=== PATIENT | male | born 1985 | race Hispanic/Latino ===

== ENCOUNTER 2018-02-23 22:19 | Emergency (ER) | payer OTHER, MEDICAID ==
[2018-02-23] MEDS ORDERED: NA CHLORIDE 0.9% 1,000 ML ONE (23:05)
[2018-02-23 23:14] LABS: Absolute Lymphocytes (CBC) 3.1 K/uL (0.7-4.9); Absolute Monocytes 1.1 K/uL (0.1-1.3); Absolute Neutrophil 4.7 K/uL (1.8-8.0); Basophils % 0.8 % (0-1.3); Eosinophils % 1.5 % (0-4.4); Hematocrit 39.9 % (39.6-49.0); Lymphocytes % 34.2 % (15.3-44.8); MCH 30.1 pg (27.0-35.0); MCV 86.3 fL (80-100); MPV 9.7 fL (7.6-11.3); Monocytes % 11.8 % (3.3-12.3); RBC Red Blood Cell Count 4.62 M/uL (4.33-5.43)
[2018-02-23] MEDS ORDERED: ONDANSETRON 4 MG/2 ML VIAL ONE (23:14)
[2018-02-23 23:33] LABS: ALT/SGPT 52 U/L (12-78); AST/SGOT 29 U/L (15-37); Albumin 3.6 g/dL (3.4-5.0); Alkaline Phosphatase 132 U/L (45-117); Amylase Level 88 U/L (25-115); BUN Blood Urea Nitrogen 16 mg/dL (7-18); Bicarbonate 28 mmol/L (21-32); Bilirubin Direct < 0.1 mg/dL (0-0.2); Bilirubin Total 0.3 mg/dL (0.2-1.0); Glucose Level 100 mg/dL (74-106); Lipase 289 U/L (73-393); Potassium 3.3 mmol/L (3.5-5.1); Protein, Total 7.3 g/dL (6.4-8.2); Sodium Level 141 mmol/L (136-145)
[2018-02-24 00:41] LABS: Urine Blood NEGATIVE (NEG); Urine Glucose NEGATIVE (NEG); Urine Protein TRACE (NEG); Urine Specific Gravity <1.005 (1.005-1.030); Urine pH 5.5 (5.0-7.0)
[2018-02-24 00:41] LABS: Urine Bacteria <20 /HPF (NONE SEEN); Urine Culture Reflex Order NOT NEEDED; Urine RBC <5 /HPF (NONE SEEN)
[2018-02-24] MEDS ORDERED: POTASSIUM 25 MEQ EFFERV TAB ONE (00:56)
--- NOTE | 2018-02-24 03:53 | ER ---
Nurse's Notes [facility] Name: Denny Arreola Age: 32 yrs Sex: Male : 1985 Arrival Date: 02/23/2018 Time: 22:23 Bed 6 Private MD: Stanley Venegas A Diagnosis: Abdominal pain Soft tissue nodule between the stomach and spleen. Colitis Presentation: 02/23 22:41 Presenting complaint: Mother states: Patients mother reports patient has been ea complaining of stomach aches since Tuesday of last week, mother reports the symptoms improved but tonight he started having more severe cramping and diarrhea. Mother states " I felt his stomach area and freaked out because I think I felt a knot on the left side". Transition of care: patient was not received from another setting of care. Onset of symptoms was February 23, 2018. Risk Assessment: Do you want to hurt yourself or someone else? Patient reports no desire to harm self or others. Initial Sepsis Screen: Does the patient meet any 2 criteria? No. Patient's initial sepsis screen is negative. Does the patient have a suspected source of infection? No. Patient's initial sepsis screen is negative. Care prior to arrival: None. 22:41 Method Of Arrival: Ambulatory ea 22:41 Acuity: ASPEN 3 ea Triage Assessment: 22:53 General: Appears in no apparent distress. Behavior is calm, cooperative, appropriate ea for age. Pain: Complains of pain in left lower quadrant. Neuro: Level of Consciousness is awake, alert, obeys commands, Oriented to person, place, time, situation. Cardiovascular: Patient's skin is warm and dry. Respiratory: Airway is patent Respiratory effort is even, unlabored, Respiratory pattern is regular, symmetrical. GI: Abdomen is non-distended, Bowel sounds present X 4 quads. Reports diarrhea. : No signs and/or symptoms were reported regarding the genitourinary system. Derm: Skin is pink, warm \\T\\ dry. Historical: - Allergies: 22:46 Bactrim; ea 22:46 Sulfa (Sulfonamide Antibiotics); ea - Home Meds: 22:46 simvastatin 10 mg oral tab [Active]; Omeprazole Oral [Active]; Uloric 40 mg oral tab 1 ea tab once daily [Active]; Nexium 20 mg Oral cpDR 1 cap 2 times per day [Active]; - PMHx: 22:46 GERD; Gout; Hyperlipidemia; sinus headache; Estes Hirshhorn Syndrome; ea - PSHx: 22:46 Ear Tubes; lipomas removed; ea - Immunization history:: Adult Immunizations up to date. - Social history:: Smoking status: Patient/guardian denies using tobacco. - Ebola Screening: : No symptoms or risks identified at this time. Screenin:55 Abuse screen: Denies threats or abuse. Nutritional screening: No deficits noted. ea Tuberculosis screening: No symptoms or risk factors identified. Fall Risk None identified. Assessment: 23:20 Reassessment: Patient and/or family updated on plan of care and expected duration. Pain ea level reassessed. Patient is alert, oriented x 3, equal unlabored respirations, skin warm/dry/pink. 02/24 00:00 Reassessment: Patient and/or family updated on plan of care and expected duration. Pain ea level reassessed. Patient is alert, oriented x 3, equal unlabored respirations, skin warm/dry/pink. 01:15 Reassessment: Patient and/or family updated on plan of care and expected duration. Pain ea level reassessed. Patient is alert, oriented x 3, equal unlabored respirations, skin warm/dry/pink. 02:00 Reassessment: Patient and/or family updated on plan of care and expected duration. Pain ea level reassessed. Patient is alert, oriented x 3, equal unlabored respirations, skin warm/dry/pink. Pt returned from CT. 04:00 Reassessment: Patient and/or family updated on plan of care and expected duration. Pain ea level reassessed. Patient is alert, oriented x 3, equal unlabored respirations, skin warm/dry/pink. Discharge instruction given to patients mother, verbalized the understanding of instruction. Vital Signs: 02/23 22:46 BP 138 / 89; Pulse 99; Resp 18; Temp 97.8; Pulse Ox 97% ; Weight 53.07 kg; Height 4 ft. ea 10 in. (147.32 cm); Pain 11/24; 02/24 00:15 BP 127 / 84; Pulse 85; Resp 18; Pulse Ox 99% on R/A; ea 01:15 BP 133 / 94; Pulse 84; Resp 18; Pulse Ox 95% on R/A; ea 02:45 BP 108 / 78; Pulse 80; Resp 18; Pulse Ox 100% ; ea 03:45 BP 117 / 78; Pulse 80; Resp 18; Temp 97.6; Pulse Ox 98% ; Pain 0/10; ea 02/23 22:46 Body Mass Index 24.45 (53.07 kg, 147.32 cm) ea ED Course: 02/23 22:23 Patient arrived in ED. es 22:23 Stanley Venegas MD is Private Physician. es 22:36 Marcos Hinson MD is Attending Physician. pkl 22:41 Wendy Viramontes RN is Primary Nurse. ea 22:43 Triage completed. ea 22:45 Wound care: to laceration located on scalp was cleaned with with normal saline, hair tl3 around laceration cut. 22:50 Patient has correct armband on for positive identification. Bed in low position. Call ea light in reach. Side rails up X 1. Adult w/ patient. 22:50 Patient placed in an exam room, on a stretcher, on pulse oximetry. ea 22:56 Inserted saline lock: 22 gauge in right antecubital area, using aseptic technique. bp 08/ 00:23 Urine Dipstick--Ancillary (enter results) Sent. bp 02:[address] via wheelchair. kw1 02:09 CT Abd/Pelvis - W/Contrast In Process Unspecified. EDMS 02:10 CT completed. Patient tolerated procedure well. Patient moved back from CT. kw1 03:51 Noman Foley MD is Referral Physician. pkl 04:05 No provider procedures requiring assistance completed. IV discontinued, intact, ea bleeding controlled, No redness/swelling at site. Pressure dressing applied. Administered Medications: 02/23 23:00 Drug: NS 0.9% 1000 ml Route: IV; Rate: 125 ml/hr; Site: right antecubital; ea 02/24 04:04 Follow up: Response: No adverse reaction; IV Status: Completed infusion ea 00:40 Drug: K-Lyte Effervescent Tablet 25 mEq Route: PO; ea 04:04 Follow up: Response: No adverse reaction ea 04:04 Drug: Cipro 500 mg Route: PO; ea 04:04 Follow up: Response: Medication administered at discharge. ea Outcome: 03:52 Discharge ordered by . pkl 04:05 Discharged to home ambulatory, with family. ea 04:05 Condition: improved 04:05 Discharge instructions given to family, Instructed on discharge instructions, follow up and referral plans. medication usage, Demonstrated understanding of instructions, follow-up care, medications, Prescriptions given X 1. 04:10 Patient left the ED. ea Signatures: Dispatcher [employer] Marcos Bran MD MD pkl Salyer, Edna es Antunez, Elena, RN RN Carlos Yanes RN RN Cortney Bazan 1 Sherry Duran RN RN tl3
--- NOTE | 2018-02-24 03:53 | EDPHYS ---
Physician Documentation [facility] Name: Denny Arreola Age: 32 yrs Sex: Male : 1985 Arrival Date: 02/23/2018 Time: 22:23 Bed 6 Private MD: Stanley Venegas, A ED Physician Marcos Hinson HPI: 02/23 23:00 This 32 yrs old Male presents to ER via Ambulatory with complaints of pkl Abdominal Pain. 23:00 The patient presents with abdominal pain in the upper abdomen. Onset: The pkl symptoms/episode began/occurred 1 week(s) ago. The symptoms do not radiate. Associated signs and symptoms: Pertinent positives: diarrhea, vomiting. Historical: - Allergies: 22:46 Bactrim; ea 22:46 Sulfa (Sulfonamide Antibiotics); ea - Home Meds: 22:46 simvastatin 10 mg oral tab [Active]; Omeprazole Oral [Active]; Uloric 40 mg oral tab 1 ea tab once daily [Active]; Nexium 20 mg Oral cpDR 1 cap 2 times per day [Active]; - PMHx: 22:46 GERD; Gout; Hyperlipidemia; sinus headache; Estes Hirshhorn Syndrome; ea - PSHx: 22:46 Ear Tubes; lipomas removed; ea - Immunization history:: Adult Immunizations up to date. - Social history:: Smoking status: Patient/guardian denies using tobacco. - Ebola Screening: : No symptoms or risks identified at this time. ROS: 23:00 Eyes: Negative for injury, pain, redness, and discharge, ENT: Negative for injury, pkl pain, and discharge, Neck: Negative for injury, pain, and swelling, Cardiovascular: Negative for chest pain, palpitations, and edema, Respiratory: Negative for shortness of breath, cough, wheezing, and pleuritic chest pain. 23:00 Abdomen/GI: Positive for abdominal pain, vomiting, diarrhea, of the right upper quadrant and left upper quadrant. 23:00 Back: Negative for acute changes. 23:00 : Negative for urinary symptoms. 23:00 MS/extremity: Negative for acute changes. 23:00 Skin: Negative for rash. 23:00 Neuro: Negative for altered mental status. Exam: 23:00 Head/Face: Normocephalic, atraumatic. Eyes: Pupils equal round and reactive to light, pkl extra-ocular motions intact. Lids and lashes normal. Conjunctiva and sclera are non-icteric and not injected. Cornea within normal limits. Periorbital areas with no swelling, redness, or edema. ENT: Nares patent. No nasal discharge, no septal abnormalities noted. Tympanic membranes are normal and external auditory canals are clear. Oropharynx with no redness, swelling, or masses, exudates, or evidence of obstruction, uvula midline. Mucous membranes moist. Neck: Trachea midline, no thyromegaly or masses palpated, and no cervical lymphadenopathy. Supple, full range of motion without nuchal rigidity, or vertebral point tenderness. No Meningismus. Chest/axilla: Normal chest wall appearance and motion. Nontender with no deformity. No lesions are appreciated. Cardiovascular: Regular rate and rhythm with a normal S1 and S2. No gallops, murmurs, or rubs. Normal PMI, no JVD. No pulse deficits. Respiratory: Lungs have equal breath sounds bilaterally, clear to auscultation and percussion. No rales, rhonchi or wheezes noted. No increased work of breathing, no retractions or nasal flaring. 23:00 Abdomen/GI: Bowel sounds: normal, Palpation: soft, mild abdominal tenderness, in the right upper quadrant and left upper quadrant. 23:00 Back: Exam negative for acute changes. 23:00 : Exam negative for acute changes. 23:00 Musculoskeletal/extremity: Exam is negative for acute changes. 23:00 Skin: Exam negative for rash. 23:00 Neuro: Orientation: is normal, Mentation: is normal, Cranial nerves: grossly normal, Motor: is normal. Vital Signs: 22:46 BP 138 / 89; Pulse 99; Resp 18; Temp 97.8; Pulse Ox 97% ; Weight 53.07 kg; Height 4 ft. ea 10 in. (147.32 cm); Pain 5/10; 02/24 00:15 BP 127 / 84; Pulse 85; Resp 18; Pulse Ox 99% on R/A; ea 01:15 BP 133 / 94; Pulse 84; Resp 18; Pulse Ox 95% on R/A; ea 02:45 BP 108 / 78; Pulse 80; Resp 18; Pulse Ox 100% ; ea 03:45 BP 117 / 78; Pulse 80; Resp 18; Temp 97.6; Pulse Ox 98% ; Pain 0/10; ea 02/23 22:46 Body Mass Index 24.45 (53.07 kg, 147.32 cm) ea MDM: 02/23 22:36 Patient medically screened. pkl 02/24 03:50 Data reviewed: vital signs, nurses notes, lab test result(s), radiologic studies, CT pkl scan. 02/23 22:59 Order name: Amylase, Serum; Complete Time: 23:37 pkl 02/23 22:59 Order name: Basic Metabolic Panel; Complete Time: 23:37 pkl 02/23 22:59 Order name: CBC with Diff; Complete Time: 23:27 pkl 02/23 22:59 Order name: Creatinine for Radiology; Complete Time: 23:37 pkl 02/23 22:59 Order name: Hepatic Function; Complete Time: 23:37 pkl 02/23 22:59 Order name: Lipase; Complete Time: 23:37 pkl 02/23 22:59 Order name: Urine Microscopic Only; Complete Time: 00:43 pkl 02/23 22:59 Order name: IV Saline Lock; Complete Time: 22:59 pkl 02/23 22:59 Order name: CT Abd/Pelvis - W/Contrast pkl 02/23 23:00 Order name: Stool Culture pkl 02/24 00:22 Order name: Urine Dipstick--Ancillary (enter results); Complete Time: 00:43 ms 02/23 22:59 Order name: Labs collected and sent; Complete Time: 23:14 pkl 02/23 22:59 Order name: Urine Dipstick-Ancillary (obtain specimen); Complete Time: 03:19 pkl Administered Medications: 02/23 23:00 Drug: NS 0.9% 1000 ml Route: IV; Rate: 125 ml/hr; Site: right antecubital; ea 02/24 04:04 Follow up: Response: No adverse reaction; IV Status: Completed infusion ea 00:40 Drug: K-Lyte Effervescent Tablet 25 mEq Route: PO; ea 04:04 Follow up: Response: No adverse reaction ea 04:04 Drug: Cipro 500 mg Route: PO; ea 04:04 Follow up: Response: Medication administered at discharge. ea Disposition: 02/24/18 03:52 Discharged to Home. Impression: Abdominal pain Soft tissue nodule between the stomach and spleen. Colitis. - Condition is Stable. - Prescriptions for Cipro 500 mg Oral Tablet - take 1 tablet by ORAL route every 12 hours for 5 days; 10 tablet. - Medication Reconciliation Form, Thank You Letter, Antibiotic Education, Prescription Opioid Use form. - Follow up: Noman Foley MD; When: 2 - 3 days; Reason: Re-evaluation by your physician. - Problem is new. - Symptoms have improved. Signatures: Dispatcher [employer] [facility] Marcos Hinson MD MD pkl Wendy Viramontes RN RN ea Corrections: (The following items were deleted from the chart) 04:10 03:52 02/24/2018 03:52 Discharged to Home. Impression: Abdominal pain Soft tissue ea nodule between the stomach and spleen. Colitis. Condition is Stable. Forms are Medication Reconciliation Form, Thank You Letter, Antibiotic Education, Prescription Opioid Use. Follow up: Noman Foley; When: 2 - 3 days; Reason: Re-evaluation by your physician. Problem is new. Symptoms have improved. pkl
[2018-02-24] MEDS ORDERED: CIPROFLOXACIN HCL 500 MG TAB ONE ×2 (03:59→04:02)
[2018-02-24 04:25] VITALS: BP 117/78; TEMP 97.6; O2SAT 98
--- NOTE | 2018-02-24 08:57 | RAD REPORT ---
EXAM DESCRIPTION: CT - Abdomen Pelvis W Contrast - 02/24/2018 4:30 am CLINICAL HISTORY: Abdominal pain. Epigastric pain COMPARISON: None. TECHNIQUE: Computed axial tomography of the abdomen and pelvis was obtained. 100 cc Isovue-300 is ad ministered intravenously. Oral contrast was given.A preliminary report was generated by [facility] reviewed prior to this dictation All CT scans are performed using dose optimization technique as appropriate and may include automated exposure control or mA/KV adjustment according to patient size. FINDINGS: Fatty infiltration of the liver is present. The biliary tree is normal caliber. The gallbladder wall is not thickened Spleen, pancreas, adrenals and kidneys appear unremarkable. A 16 millimeters soft tissue structure lies between the stomach and spleen. The appendix is normal caliber. There is no evidence of diverticulitis Small inguinal hernias contain fat. A small umbilical hernia contains fat IMPRESSION: 16 millimeter soft tissue structure between the spleen and stomach probably representin g an accessory spleen. Less likely a mass. Followup ultrasound in 3 months is recommended to assess s tability. Fatty infiltration of liver
== END 2018-02-24 04:10 | disposition home or self-care (01) ==
LOC: ER 22:19
DX: K52.9 Noninfective gastroenteritis and colitis, unspecified (principal); M79.89 Other specified soft tissue disorders; E78.5 Hyperlipidemia, unspecified; K21.9 Gastro-esophageal reflux disease without esophagitis; Z88.1 Allergy status to other antibiotic agents; Z88.2 Allergy status to sulfonamides
CPT/HCPCS: 36415; 74177; 80048; 80076; 81003; 81015; 82150; 83690; 85025; 87045; 87046; 96360; 96361; 99285; J2405; J7030; Q9967

== ENCOUNTER 2018-07-25 09:17 | Day surgery (SDC) | payer OTHER, MEDICAID ==
[2018-07-25] MEDS ORDERED: Ringers Lactate 1,000 ML IV ONE (09:31)
[2018-07-25] MEDS ORDERED: CEFAZOLIN 1GM (PREMIX IV) 1 GM/50 ML BAG ONE (09:31)
[2018-07-25 09:33] LABS: Absolute Lymphocytes (CBC) 2.1 K/uL (0.7-4.9); Absolute Monocytes 0.7 K/uL (0.1-1.3); Absolute Neutrophil 4.8 K/uL (1.8-8.0); Basophils % 0.9 % (0-1.3); Eosinophils % 0.7 % (0-4.4); Hematocrit 45.7 % (39.6-49.0); Lymphocytes % 27.7 % (15.3-44.8); MPV 9.4 fL (7.6-11.3); Monocytes % 9.1 % (3.3-12.3); RBC Red Blood Cell Count 5.23 M/uL (4.33-5.43)
--- NOTE | 2018-07-25 09:39 | RAD REPORT ---
EXAM DESCRIPTION: Bola Lucio (2 Views)07/25/2018 9:15 am CLINICAL HISTORY: Preop COMPARISON: 2016 FINDINGS: The lungs appear clear of acute infiltrate. The heart is normal size IMPRESSION: No acute abnormalities displayed
[2018-07-25 09:42] LABS: Potassium 3.9 mmol/L (3.5-5.1)
[2018-07-25] MEDS ORDERED: PROPOFOL 200 MG/20 ML VIAL IV ONE (10:03)
[2018-07-25] MEDS ORDERED: MIDAZOLAM HCL 2 MG/2 ML INJ ONE (10:03)
[2018-07-25] MEDS ORDERED: LIDOCAINE 1% MPF 5 ML VIAL ONE (10:04)
[2018-07-25] MEDS ORDERED: FENTANYL CITR 100 MCG/2 ML ONE (10:04)
[2018-07-25] MEDS ORDERED: KETOROLAC 30 MG/ML INJ ONE (10:31)
[2018-07-25] MEDS ORDERED: ONDANSETRON 4 MG/2 ML VIAL ONE (10:31)
[2018-07-25] MEDS ORDERED: Mastisol Adhesive Liq ONE (10:55)
[2018-07-25 11:34] VITALS: O2SAT 99
[2018-07-25 12:00] VITALS: BP 139/91; TEMP 97.2
[2018-07-25] MEDS ORDERED: HYDROCODONE/APAP 7.5/325 MG TAB ONE (12:21)
--- NOTE | 2018-07-25 22:01 | OP ---
Date of Procedure: 07/25/2018 Surgeon: Parviz Torres MD Preoperative Diagnosis: Multiple masses in the left forearm, left abdomen, and bilateral thighs. Postoperative Diagnosis: Multiple masses in the left forearm, left abdomen, and bilateral thighs. Procedure: Excision of left forearm mass, 4 x 2 cm, with layered closure. Excision of left abdomen mass, 4 x 2 cm, with layered closure. Excision of left thigh mass, 4 x 2 cm, with layered closure. Excision of right thigh mass, 4 x 2 cm, with layered closure. Estimated Blood Loss: Minimal. Specimen: Multiple masses. Findings: Lipoma. Anesthesia: General. Complications: None. Disposition: The patient tolerated the procedure in stable condition and was taken to Recovery Room in good general condition. Procedure In Detail: The patient was brought to the OR and placed in supine position. General anest hesia was begun. The patient was prepped and draped in the usual sterile fashion. Marcaine 0.5% was infiltrated locally. Then a 4 cm incision was made over all 4 masses. Subcutaneous tissues divided . Approximately 4 x 2 cm lipomas were in each location. They were all excised, sent to Pathology af ter being labeled appropriately. Wound irrigated. Bleeding controlled with cautery. 3-0 chromic us ed to approximate the subcutaneous tissue as well as the skin. Sterile dressing was applied. The patient was awakened and taken to Recovery in g ood general condition. /MODL Voice ID: [id number] Report ID: [id number]
--- NOTE | 2018-07-25 22:07 | DS ---
Date of Discharge: 07/25/2018 Discharge Note: The patient is going to Day Surgery and home when stable. Disposition: Home. Condition: Stable. Discharge Instructions: Resume home medications and diet. Activity, as tolerated. No heavy lifting . Remove outer dressing in 2 days. Shower. Keep wound clean and dry. Keep Steri-Strips on at all times. Tylenol No. 3 one tablet p.o. q.4 p.r.n. pain. Followup my office in 1 week, call for appoin tment. MY/EDUARDO Voice ID: [id number] Report ID: [id number]
--- NOTE | 2018-07-25 22:58 | EKG ---
Test Date: 2018-07-25 Test Time: 08:49:35 Health Program Manager: CROW MEASUREMENT RESULTS: Intervals: Rate: 91 WY: 106 QRSD: 66 QT: 342 QTc: 420 [place]: P: -14 WY: 106 QRS: 0 T: 8 INTERPRETIVE STATEMENTS: Sinus rhythm Normal ECG Compared to ECG 12/04/1991 20:12:00 no significant change from previous ECG Electronically Signed On 07-25-18 22:58:01 [employer] MILL OPERATOR by Jr Montenegro
== END 2018-07-25 12:45 | disposition home or self-care (01) ==
LOC: OR 09:17
PROVIDERS: ATTEND Surgery
PROC: 0JB80ZZ Excision of Abdomen Subcutaneous Tissue and Fascia, Open Approach (ICD-10-PCS; 2018-07-25)
PROC: 0JBM0ZZ Excision of Left Upper Leg Subcutaneous Tissue and Fascia, Open Approach (ICD-10-PCS; 2018-07-25)
PROC: 0JBL0ZZ Excision of Right Upper Leg Subcutaneous Tissue and Fascia, Open Approach (ICD-10-PCS; 2018-07-25)
PROC: 0JBH0ZZ Excision of Left Lower Arm Subcutaneous Tissue and Fascia, Open Approach (ICD-10-PCS; principal; 2018-07-25 10:00)
DX: D17.24 Benign lipomatous neoplasm of skin and subcutaneous tissue of left leg (principal); D17.23 Benign lipomatous neoplasm of skin and subcutaneous tissue of right leg; D17.22 Benign lipomatous neoplasm of skin and subcutaneous tissue of left arm; D17.1 Benign lipomatous neoplasm of skin and subcutaneous tissue of trunk
CPT/HCPCS: 36415; 71046; 80048; 85025; 88304; 93005; J0690; J2250; J2405; J2704; J3010

== ENCOUNTER 2019-09-04 16:02 | Emergency (ER) | payer OTHER, MEDICAID ==
--- OUTSIDE RECORDS SUMMARY | 2019-09-04 16:05 | XMS REPORT ---
:1985 [facility] Address [address] [place] [address] Dr. Banks [address] [place] [id number] Care Team Providers Name Role Phone Unavailable Unavailable Unavailable Problems This patient has no known problems. Allergies, Adverse Reactions, Alerts This patient has no known allergies or adverse reactions. Medications This patient has no known medications. Encounters Start End Encounter Admission Attending Care Care Encounter Date/Time Date/Time Type Type Clinicians Facility Department ID 2019-09-04 2019-09-04 Outpatient [facility] [id number] 13:25:00 13:25:00
--- OUTSIDE RECORDS SUMMARY | 2019-09-04 16:06 | XMS REPORT | Summary of Care ---
:1985 Author Organization [facility] - [facility] Address [address] [place] [id number] Care Team Providers Name Role Phone Stanley Venegas Primary Care Provider Reason for Visit Reason Comments Follow-up Encounter Details Date Type Department Care Team Description 08/07/2019 Office Visit [facility] Internal oTmekashannenScot Gout, unspecified cause, unspecified chronicity, unspecified site (Primary Dx); Medicine M, DO Therapeutic drug monitoring Rheumatology-[address] Primary [place], [place] [address] [place] , [address] [address] [place] [address] Allergies Active Allergy Reactions Severity Noted Date Comments Sulfa (Sulfonamide Antibiotics) Hives 06/27/2009 documented as of this encounter (statuses as of 08/07/2019) Medications Medication Sig Dispensed Refills Start Date End Date Status simvastatin (ZOCOR) Take 20 mg by 0 Active 20 mg tablet mouth at bedtime. montelukast Take 10 mg by 0 Active (SINGULAIR) 10 mg mouth. tablet loratadine 10 mg Take 10 mg by 0 Active tablet mouth daily. esomeprazole Take 40 mg by 0 Active (NEXIUM) 40 mg mouth daily capsuleIndications: with taking it ever breakfast. other day Indications: taking it ever other day febuxostat (ULORIC) Take 1 tablet 30 tablet 2 07/13/2019 Active 40 mg by mouth tabletIndications: daily. 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 Foot joint pain 06/27/2009 Other abnormal blood chemistry 06/27/2009 documented as of this encounter (statuses as of 08/07/2019) Immunizations Name Administration Dates Next Due Influenza Virus Vaccine Quad IM 3+ YRS 05/25/2016 documented as of this encounter Social History Tobacco Use Types Packs/Day Years Used Date Never Smoker Smokeless Tobacco: Never Used Alcohol Use Drinks/Week oz/Week Comments Not Asked Sex Assigned at Date Recorded Not on file Job Start Date Occupation Industry Not on file Not on file Not on file Travel History Travel Start Travel End No recent travel history available. documented as of this encounter Last Filed Vital Signs Vital Sign Reading Time Taken Comments Blood Pressure 123/88 08/07/2019 9:32 AM FERN GATHERER Pulse 103 08/07/2019 9:32 AM FERN GATHERER Temperature - - Respiratory Rate 16 08/07/2019 9:32 AM FERN GATHERER Oxygen Saturation 100% 08/07/2019 9:32 AM FERN GATHERER Inhaled Oxygen Concentration - - Weight 54.8 kg (120 lb 12.8 oz) 08/07/2019 9:32 AM FERN GATHERER Height - - Body Mass Index 25.25 10/11/2017 10:22 AM CDT documented in this encounter Progress Notes Scot Moreira, DO - 08/07/2019 9:20 AM CST HPI: Mr. 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 Initially diagnosed after persistent left ankle pain and swelling that was evaluated by Ortho (rx left ankle boot after xray, dx sprain). Uloric was started and he responded well but had some persistent left ankle swelling that was steroid responsive and resolved. Uses short term LD prednisone for rare flares, but hasn't had one in many months. He is accompanied by his mother today. He tolerates Uloric 40 mg QD well without side effects. Per mom, PCP, Dr. Stanley Venegas monitors lipids. She continues to implement gout diet changes at home to lower uric acid and as of this visit. He is physically active and is able to do all ADLs to include play basketball, walk outdoors and jump on his trampoline. Some knee pain b/l. No swelling, erythema or warmth. With overuse. SOCIAL: Denny attends work activity center daily from 8:00 - 2:00 PM which provides structured activities. 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 Indications: taking it ever other day, Disp: , Rfl: loratadine 10 mg tablet, Take 10 mg by mouth daily., Disp: , Rfl: montelukast (SINGULAIR) 10 mg tablet, Take 10 mg by mouth., Disp: , Rfl: simvastatin (ZOCOR) 20 mg tablet, Take 20 mg by mouth at bedtime., Disp: , Rfl: REVIEW OF SYSTEMS Constitutional: denies chills, denies fatigue and denies fever . Eyes: denies blurry vision, denies decreased vision and denies discharge. Ears: denies discharge, denies ear pain and denies tinnitus. Nose/Sinuses: reports nasal allergies with PND, occasional sore throat and sinus congestion. Mouth/Throat: denies bleeding gums, blisters and hoarseness. Neck: denies pain, denies swollen glands Cardiovascular: denies chest pain , denies irregular pulse and denies palpitations. Respiratory: denies SOB, cough, wheeze Gastrointestinal: denies abdominal pain, anorexia, constipation and diarrhea. Genitourinary: denies burning, flank pain and hematuria. Musculoskeletal: see HPI Skin: denies bruising, dry skin and itching. PHYSICAL EXAM: Vitals: 08/07/19 0932 BP: 123/88 BP Location: Left arm Patient Position: Sitting BP CUFF SIZE: Adult Small Pulse: 103 Resp: 16 SpO2: 100% Weight: 120 lb 12.8 oz (54.8 kg) GENERAL:Pleasant alert, short stature, shortened upper and lower extremities and digits. EYES: anicteric sclera, pupils are equally round and reactive to light, extraocular movements are intact. No conjunctival erythema. HEENT: Microcephalic with mildly malformed symmetric low set ears. NECK: No palpable lymphadenopathy or thyromegaly. SKIN: No rash noted. MUSCULOSKELETAL: Small hypoplastic hands with short 5th metacarpal and reducible swan neck deformity in bilateral index fingers. FROM bilateral UE without swelling or tenderness. FROM without tenderness or swelling bilateral knees. Bilateral knees without swelling, warmth, tenderness. Bilateral ankle and feet without swelling, warmth, redness or tenderness. Somewhat flat feet. No point tenderness on palpation of right MTPs/IPs, ankles. FROM bilateral LE without tenderness. NEURO: Able to arise from seated position without assistance. Steady gait with good turnaround. LAB REVIEW: Orders Only on 06/25/2016 Component Date Value Ref Range Status URIC ACID-Q 06/25/2016 7.6 4.0 - 8.0 mg/dL Final Comment: Therapeutic target for gout patients: <6.0 mg/dL ALBUMIN-Q 06/25/2016 4.1 3.6 - 5.1 g/dL Final AST-Q 06/25/2016 34 10 - 40 U/L Final ALT-Q 06/25/2016 53* 9 - 46 U/L Final SED RATE BY MODIFIED$WESTERGREN-Q 06/25/2016 2 < OR=15 mm/h Final WHITE BLOOD CELL COUNT-Q 06/25/2016 7.9 3.8 - 10.8 Thousand/uL Final RED BLOOD CELL COUNT-Q 06/25/2016 4.93 4.20 - 5.80 Million/uL Final HEMOGLOBIN-Q 06/25/2016 14.1 13.2 - 17.1 g/dL Final HEMATOCRIT-Q 06/25/2016 42.3 38.5 - 50.0 % Final MCV-Q 06/25/2016 85.9 80.0 - 100.0 fL Final MCH-Q 06/25/2016 28.6 27.0 - 33.0 pg Final MCHC-Q 06/25/2016 33.3 32.0 - 36.0 g/dL Final RDW-Q 06/25/2016 14.4 11.0 - 15.0 % Final PLATELET COUNT-Q 06/25/2016 358 140 - 400 Thousand/uL Final MPV-Q 06/25/2016 9.2 7.5 - 11.5 fL Final ABSOLUTE NEUTROPHILS-Q 06/25/2016 4882 1500 - 7800 cells/uL Final ABSOLUTE LYMPHOCYTES-Q 06/25/2016 2038 850 - 3900 cells/uL Final ABSOLUTE MONOCYTES-Q 06/25/2016 885 200 - 950 cells/uL Final ABSOLUTE EOSINOPHILS-Q 06/25/2016 63 15 - 500 cells/uL Final ABSOLUTE BASOPHILS-Q 06/25/2016 32 0 - 200 cells/uL Final NEUTROPHILS-Q 06/25/2016 61.8 % Final LYMPHOCYTES-Q 06/25/2016 25.8 % Final MONOCYTES-Q 06/25/2016 11.2 % Final EOSINOPHILS-Q 06/25/2016 0.8 % Final BASOPHILS-Q 06/25/2016 0.4 % Final C-REACTIVE PROTEIN-Q 06/25/2016 0.13 <0.80 mg/dL Final Comment: Please be advised that patients taking Carboxypenicillins may exhibit falsely decreased C-Reactive Protein levels due to an analytical interference in this assay. 02/26/2016: Normal AST, ALT and Alkaline Phosphatase 04/15/15 CBC normal except continued elevation in PLTs 420 (was 451, 449 as of 2014). AST/ALT, ESR/CRP WNL. Creatinine stable at 1.24. Uric acid in target at 5.4. 01/08/15 WBC 11.3. Plt 433. ESR 44. 01/02/15 W 11.8. Plt 451. SGPT and CK WNL. Creat 1.24. UA 6.1 12/05/14 Plt 449. Uric Acid 6.3. Rest of CBC, AST, ALT, and creat unremarkable or WNL 11/07/14 WBC 10.9. Uric Acid 8.4. Chol 405 and TG 408. ALT, AST, ESR and CRP WNL. Supervisor Stave Finishing 1.36 10/10/14 digital media planner 1.4. UA 11.3. AST/ALT 65/111. CBC WNL. Per Dr. Moreira's review of x-ray films - c/wgout 09/19/14 AST/ALT 60/103. CK WNL. Supervisor Stave Finishing 1.4. UA 10.9 08/25/14 LFTs OK. Creatinine slightly elevated, but GFR within range for daily dosing of cochcine. 09/29/17 Done by PCP. UA 6.1. Following with PCP for the following abnormalities: Chol 277. HDL 37. Trig 456. Creat 1.49 and 2+ proteinuria (PCP referred to nephrology for this) Alk Phos 121 (115) - advised to discuss with PCP regarding any further w/u like fractions, or may just want to trend for a while. 03/15/18 UA 5.6. Plt 407K. Supervisor Stave Finishing 1.32. AST and ALT WNL IMAGING REVIEW: 01/08/15 X-ray left foot - STS great toe. No fracture or periosteal reaction. 09/13/18 UA 5.9. AST/ALT 56/95 Re check WNL. GGT, CK and hep sero normal. CBC UR Supervisor Stave Finishing 1.51 01/31/19 UA 4.7. Supervisor Stave Finishing 1.3. Plt 382K. AST and ALT WNL. US showed small kidneys. ASSESSMENT AND PLAN M10.9 Gout, unspecified cause, unspecified chronicity, unspecified site ( primary encounter diagnosis) Z51.81 Therapeutic drug monitoring Hereditary hyperuricemia (primary encounter diagnosis) Chronic Gout COMMENT/PLAN: Mr. Arreola continues to respond well to Uloric (Febuxostat) 40 mg QD. Today he has no joint pain complaints and PE shows no tenderness, erythema or swelling. No change in Uloric dose. Will follow with PCP for lipid , alk phos abnormalities. Continue to monitor symptoms - no changes tomedications at present. Continue Uloric 40 mg po QD. B/L Knee pain likely mechanical from flat feet. Advised gradual arch support. Orders Placed This Encounter Procedures ALANINE AMINO TRANSFERASE(SGPT CBC WITH DIFF URIC ACID SGOT (ASPARTATE AMINO TRANSFER) CREATININE We had a discussion about some of the recent data reports in the medial about Uloric vs allopurinol and all cause mortality, CV mortality and CV risk. The FDA issued an advisory, but it didn't say much more than what we discussed in the past. They understand and will continue rather than switch to allopurinol. RTC 6 months or sooner as needed. documented in this encounter Plan of Treatment Name Type Priority Associated Diagnoses Order Schedule ALANINE AMINO LAB Routine Gout, unspecified cause, Ordered: 08/07/2019 TRANSFERASE(SGPT unspecified chronicity, unspecified site CBC WITH DIFF LAB Routine Gout, unspecified cause, Ordered: 08/07/2019 unspecified chronicity, unspecified site URIC ACID LAB Routine Gout, unspecified cause, Ordered: 08/07/2019 unspecified chronicity, unspecified site SGOT (ASPARTATE AMINO LAB Routine Gout, unspecified cause, Ordered: 2019 TRANSFER) unspecified chronicity, unspecified site CREATININE LAB Routine Gout, unspecified cause, Ordered: 08/07/2019 unspecified chronicity, unspecified site Health Maintenance Due Date Last Done Comments VARICELLA VACCINES ( - 1986 2-dose childhood series) DTaP,Tdap,and Td Vaccines ( - 1996 Tdap) INFLUENZA VACCINE (#1) 2019 05/25/2016 PNEUMOCOCCAL 0-64 YEARS COMBINED Aged Out No longer eligible based on SERIES patient's age to complete this topic documented as of this encounter Results Not on filedocumented in this encounter Visit Diagnoses Diagnosis Gout, unspecified cause, unspecified chronicity, unspecified site - Primary Therapeutic drug monitoring Encounter for therapeutic drug monitoring documented in this encounter Insurance Payer Benefit Plan / Subscriber ID Effective Phone Address Type Group Dates CIGNA CIGNA II [id number] 2017-Pres HMO/PPO/POS ent RAINEY RAINEY xxxxxxxxx 2014-Pres [address] Medicaid HEALTHCARE - HEALTHCARE [place] [id number] MANAGED MEDICAID [place], [place]ID [place] (Work) documented as of this encounter Advance Directives Type Date Recorded 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
--- OUTSIDE RECORDS SUMMARY | 2019-09-04 16:06 | XMS REPORT | Summary of Care ---
:1985 Author Organization [facility] - Health Address [address] [place] [address] Care Team Providers Name Role Phone Stanley Venegas Primary Care Provider Encounter Details Date Type Department Care Team Description 08/23/2019 Orders Only [facility] Doctor Unassigned, No [address] [facility] [place] [address] [address] [place] [address] Allergies Active Allergy Reactions Severity Noted Date Comments Sulfa (Sulfonamide Antibiotics) Hives 06/27/2009 documented as of this encounter (statuses as of 08/23/2019) Medications Medication Sig Dispensed Refills Start Date End Date Status simvastatin (ZOCOR) 20 Take 20 mg by 0 Active mg tablet mouth at bedtime. montelukast (SINGULAIR) Take 10 mg by 0 Active 10 mg tablet mouth. loratadine 10 mg tablet Take 10 mg by 0 Active mouth daily. esomeprazole (NEXIUM) Take 40 mg by 0 Active 40 mg mouth daily with capsuleIndications: breakfast. taking it ever other Indications: day taking it ever other day febuxostat (ULORIC) 40 Take 1 tablet by 30 tablet 2 07/13/2019 Active mg tabletIndications: mouth daily. 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 Foot joint pain 06/27/2009 Other abnormal blood chemistry 06/27/2009 documented as of this encounter (statuses as of 08/23/2019) Immunizations Name Administration Dates Next Due Influenza [...] of this encounter Last Filed Vital Signs Not on filedocumented in this encounter Plan of Treatment Date Type Specialty Care Team Description 08/23/2019 Touch Up Carver Visit Phlebotomy Scot Moreira, DO [address] [place] [address] [phone] Pob, Adc Lab Main 02/05/2020 Office Visit Rheumatology Scot Moreira, DO [address] [place] [address] [phone] Health Maintenance Due Date Last Done Comments VARICELLA VACCINES (1 of 2 - 1986 2-dose childhood series) DTaP,Tdap,and Td Vaccines (1 - 1996 Tdap) INFLUENZA VACCINE (#1) 2019 05/25/2016 PNEUMOCOCCAL 0-64 YEARS COMBINED Aged Out No longer eligible based on SERIES patient's age to complete this topic documented as of this encounter Procedures Procedure Name Priority Date/Time Associated Diagnosis Comments ASSIGNMENT OF BENEFITS Routine 08/23/2019 8:27 AM MANAGER RISK documented in this encounter Results Not on filedocumented in this encounter Insurance Payer Benefit Plan / Subscriber ID Effective Phone Address Type Group Dates CIGNA CIGNA II [id number] 2017-Pres HMO/PPO/POS ent RAINEY RAINEY xxxxxxxxx 2014-Pres P O BOX Medicaid HEALTHCARE - [place]CARE [place] [id number] MANAGED MEDICAID [place], [place] documented as of this encounter Advance Directives Type Date Recorded Patient Telephone Surveyor Explanation Advance Directives and Living Will Advance Directives and Living Will Power of Thread Singer
--- OUTSIDE RECORDS SUMMARY | 2019-09-04 16:06 | XMS REPORT | Summary of Care ---
:1985 Author Organization [facility] [[email or web address]] - [facility] Address [address] [place] [address] Care Team Providers Name Role Phone Stanley Venegas Primary Care Provider Reason for Visit Reason Comments LAB WORK Lab Results Encounter Details Date Type Department Care Team Description 08/08/2019 Telephone [facility] Internal Scot Moreira, LAB WORK; Lab Results Medicine DO Rheumatology[address] Primary Care [address] , [place], [place] [id number] [place] [address] [phone] [address] [phone] Allergies Active Allergy Reactions Severity Noted Date Comments Sulfa (Sulfonamide Antibiotics) Hives 06/27/2009 documented as of this encounter (statuses as of 08/08/2019) Medications Medication Sig Dispensed Refills Start Date [...] as of this encounter (statuses as of 08/08/2019) Active Problems Problem Noted Date Hereditary hyperuricemia 05/28/2014 Abnormal LFTs 04/16/2014 Gout 07/09/2009 Overview: ICD10 Diagnosis 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 Foot joint pain 06/27/2009 Other abnormal blood chemistry 06/27/2009 documented as of this encounter (statuses as of 08/08/2019) Immunizations Name Administration Dates Next Due Influenza [...] Treatment Date Type Specialty Care Team Description 02/05/2020 Office Visit Rheumatology Scot Moreira, DO [address] [place] [address] [phone] Name Type Priority Associated Diagnoses Order Schedule SGOT (ASPARTATE AMINO LAB Routine Gout, unspecified cause, Expected: 2019, TRANSFER) unspecified chronicity, Expires: 08/08/2020 unspecified site Therapeutic drug monitoring ALANINE AMINO LAB Routine Gout, unspecified cause, Expected: 08/08/2019, TRANSFERASE(SGPT unspecified chronicity, Expires: 08/08/2020 unspecified site Therapeutic drug monitoring CREATINE KINASE LAB Routine Gout, unspecified cause, Expected: 08/08/2019, unspecified chronicity, Expires: 08/08/2020 unspecified site Therapeutic drug monitoring Health Maintenance Due Date Last Done Comments [...] Address Type Group Dates CIGNA CIGNA II [id number] 2017-Pres HMO/PPO/POS ent RAINEY RAINEY xxxxxxxxx 2014-Pres P [address] BOX Medicaid HEALTHCARE - [place]CARE [place] [id number] MANAGED MEDICAID [place], [place] documented as of this encounter Advance Directives Type Date Recorded 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
--- OUTSIDE RECORDS SUMMARY | 2019-09-04 16:06 | XMS REPORT | Summary of Care ---
:1985 Author Organization [facility] - [facility] Address [address] [place] [address] Care Team Providers Name Role Phone Stanley Venegas Primary Care Provider Reason for Visit Reason Comments Follow-up Encounter Details Date Type Department Care Team Description 08/07/2019 Office Visit [facility] Internal TomekashannenScot Gout, unspecified cause, unspecified chronicity, unspecified site (Primary Dx); Medicine M, DO Therapeutic drug monitoring Rheumatology-[address] Primary Care [place], [place] [address] [place] , [address] [address] [place] [address] Allergies Active Allergy Reactions Severity [...] 04/16/2014 Gout 07/09/2009 Overview: ICD10 Diagnosis 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 ALT, AST, ESR and CRP WNL. Child Support Specialist 1.36 10/10/14 trim setter helper 1.4. UA 11.3. AST/ALT 65/111. CBC WNL. Per Dr. Moreira's review of x-ray films - c/wgout 09/19/14 AST/ALT 60/103. CK WNL. Child Support Specialist 1.4. UA 10.9 08/25/14 LFTs OK. Creatinine [...] a while. 03/15/18 UA 5.6. Plt 407K. Child Support Specialist 1.32. AST and ALT WNL IMAGING REVIEW: 01/08/15 X-ray left foot - STS great toe. No fracture or periosteal reaction. 09/13/18 UA 5.9. AST/ALT 56/95 Re check WNL. GGT, CK and hep sero normal. CBC UR Child Support Specialist 1.51 01/31/19 UA 4.7. Child Support Specialist 1.3. Plt 382K. AST and ALT WNL. 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
--- OUTSIDE RECORDS SUMMARY | 2019-09-04 16:06 | XMS REPORT | Summary of Care ---
:1985 Author Organization [facility] - Health Address [address] [place] [address] Care Team Providers Name Role Phone Stanley Venegas Primary Care Provider Reason for Visit Reason Comments GOUT Follow up Encounter Details Date Type Department Care Team Description 01/20/2016 Office Visit [facility] Internal Chanell Nielsen Hereditary hyperuricemia (Primary Dx); Medicine A, PA-C Acute idiopathic gout of left foot; Rheumatology-[address] Therapeutic drug monitoring; n South Foot joint pain, left Primary Care [place], [place] [address] , [address] [facility] [address] [place], [place] [phone] [address] (Fax) [phone] Allergies Active Allergy Reactions Severity Noted Date Comments Sulfa (Sulfonamide Antibiotics) Hives 06/27/2009 documented as of this encounter (statuses as of 08/23/2019) Medications Medication Sig Dispensed Refills Start Date End Date Status simvastatin (ZOCOR) Take 20 mg 0 Active 20 mg tablet by mouth at bedtime. montelukast Take 10 mg 0 Active (SINGULAIR) 10 mg by mouth. tablet LORATADINE Take by 0 Discontinued (CLARITIN ORAL) mouth. 6 (Alternate therapy) chlorhexidine 1 12/28/2014 Discontinued (PERIDEX) 0.12 % 6 (Therapy mouthwash completed) PREVIDENT 5000 2 11/11/2014 Discontinued BOOSTER PLUS 1.1 % 8 Pste predniSONE Take 4 120 Tab 1 02/21/2015 Discontinued (ORASONE) 1 mg tablets by 6 (Therapy tablet mouth each completed) morning with a meal. lansoprazole Take 30 mg 0 Discontinued (PREVACID) 30 mg by mouth 8 capsule daily. 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 Foot joint pain 06/27/2009 Other abnormal blood chemistry 06/27/2009 documented as of this encounter (statuses as of 08/23/2019) Social History Tobacco Use Types Packs/Day Years [...] Sign Reading Time Taken Comments Blood Pressure 120/88 01/20/2016 4:02 PM CDT Pulse 89 01/20/2016 4:02 PM CDT Temperature 36.3 C (97.3 F) 01/20/2016 4:02 PM CDT Respiratory Rate 20 01/20/2016 4:02 PM CDT Oxygen Saturation - - Inhaled Oxygen Concentration - - Weight 52.4 kg (115 lb 9.6 oz) 01/20/2016 4:02 PM CDT Height 147.3 cm (4' 10") 01/20/2016 4:02 PM CDT Body Mass Index 24.16 01/20/2016 4:02 PM CDT documented in this encounter Progress Notes Chanell Nielsen PA-C - 01/20/2016 4:12 PM CDT 01/20/2016 HPI: Mr. 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 Prior had persistent left ankle pain and swelling that was initially evaluated by Ortho (rx left ankle boot after xray, dx sprain). Since last visit, August 2015 he has been doing well w/o gout flares and has been able to wean prednisone. Per mom, Denny has been complaining of left toe pain recently but there has been no swelling/redness or trauma. Other joints are doing well and he denies joint pain, stiffness, and swelling. Hetolerates Uloric 40 mg QD well without side effects. Per mom, PCP, Dr. Stanley Venegas monitors lipids and will check them at his next visit. She continues to implement diet changes at home and as ofthis visit, Denny has lost 2 pounds. He is physically active and is able to do all ADLs to include play basketball, walk outdoors and jump on his new trampoline. They will be taking a cruise from [place] for summer vacation. SOCIAL: Denny attends work activity center daily from 8:00 - 2:00 PM which provides structured activities. He has an 8 y/o brother at home. 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,moderate mental retardation Otitis media UTI (lower urinary tract infection) and retention-was on medication for about7-8 months Past Surgical History Procedure Laterality Date Myringotomy Current outpatient prescriptions: febuxostat (ULORIC) 40 mg tablet, Take one tablet daily, Disp: 30 tablet, Rfl: 4 lansoprazole (PREVACID) 30 mg capsule, Take 30 mg by mouth daily., Disp: , Rfl: montelukast (SINGULAIR) 10 mg tablet, Take 10 mg by mouth., Disp: , Rfl: PREVIDENT 5000 BOOSTER PLUS 1.1 % Pste, , Disp: , Rfl: 2 simvastatin (ZOCOR) 20 mg tablet, Take 20 mg by mouth at bedtime., Disp: , Rfl: LORATADINE (CLARITIN ORAL), Take by mouth., Disp: , Rfl: REVIEW OF SYSTEMS Constitutional: [...] bruising, dry skin and itching. PHYSICAL EXAM: Filed Vitals: 01/20/16 1602 BP: 120/88 Pulse: 89 Temp: 36.3 C (97.3 F) TempSrc: Axillary Resp: 20 Height: 4' 10" (1.473 m) Weight: 115 lb 9.6 oz (52.436 kg) GENERAL:Pleasant alert, short stature, shortened upper [...] knees. Bilateral knees without swelling, warmth, tenderness. Right ankleand foot without swelling, warmth, redness or tenderness. Left foot/ankle with tenderness on MTP squeeze and over medial malleolus; no redness and no warmth. Some mild bunion formation left great toe with mild tenderness to deep palpation. FROM bilateral LE without tenderness. Thoracolumbar flexionwith good ROM - able to touch shoes with hands bilaterally. NEURO: Able to arise from seated position without assistance. Steady gait. LAB REVIEW: 04/15/15 CBC normal except continued elevation in PLTs 420 (was 451, 449 as of 2014). AST/ALT, ESR/CRP WNL. Creatinine stable at 1.24. Uric acid in target at 5.4. 01/08/15 WBC 11.3. Plt 433. ESR 44. 6/ W 11.8. Plt 451. SGPT and CK WNL. Creat 1.24. UA 6.1 12/05/14 Plt 449. Uric Acid 6.3. Rest of CBC, AST, ALT, and creat unremarkable or WNL 11/07/14 WBC 10.9. Uric Acid 8.4. Chol 405 and TG 408. ALT, AST, ESR and CRP WNL. Pharmacovigilance Scientist 1.36 10/10/14 cotton ball machine tender 1.4. UA 11.3. AST/ALT 65/111. CBC WNL. Per Dr. Moreira's review of x-ray films - c/wgout 09/19/14 AST/ALT 60/103. CK WNL. Pharmacovigilance Scientist 1.4. UA 10.9 08/25/14 LFTs OK. Creatinine slightly elevated, but GFR within range for daily dosing of cochcine. IMAGING REVIEW: 01/08/15 X-ray left foot - STS great toe. No fracture or periosteal reaction. 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 Arreola continues to respond well to Uloric (Febuxostat) 40 mg QD without recent gout flare. Today he has some left great toe pain. PE shows no erythema or swelling. Will check uric acids and labs for medication toxicity (please send lab results to mother to hand carry to PCP's office, [facility]). Continue to monitor symptoms - no changes to medications at present. Continue Uloric 40 mg po QD. eRX sent to [facility] pharmacy. Z51.81 Therapeutic drug monitoring COMMENT/PLAN: Update labs today to check for toxicity to Uloric. Tolerating medication well. History of elevated LFTs, PLTs in past. Orders Placed This Encounter Procedures URIC ACID CBC WITH DIFF COMP. METABOLIC PANEL (67336) RTC 4 months or sooner as needed. NORTH Robin PA-C [facility] documented in this encounter Plan of Treatment Date Type Specialty Care Team Description 02/05/2020 Office Visit Rheumatology Scot Moreira, DO [address] [place] [address] [phone] Name Type Priority Associated Diagnoses Order Schedule URIC ACID LAB Routine Acute idiopathic gout of left foot Ordered: 2015 CBC WITH DIFF LAB Routine Therapeutic drug monitoring Ordered: 01/20/2016 Health Maintenance Due Date Last Done Comments VARICELLA VACCINES (1 of 2 - 1986 2-dose childhood series) DTaP,Tdap,and Td Vaccines (1 - 1996 Tdap) INFLUENZA VACCINE (#1) 2019 05/25/2016 PNEUMOCOCCAL 0-64 YEARS COMBINED Aged Out No longer eligible based on SERIES patient's age to complete this topic documented as of this encounter Results Not on filedocumented in this encounter Visit Diagnoses Diagnosis Hereditary hyperuricemia - Primary Other disorders of purine and pyrimidine metabolism Acute idiopathic gout of left foot Therapeutic drug monitoring Encounter for therapeutic drug monitoring Foot joint pain, left documented in this encounter Insurance Payer Benefit Plan / Subscriber ID Effective Phone Address Type Group Dates CIGNA CIGNA I [id number] 2007-07/18 HMO/PPO/POS /2018 BRIGID RAINEY xxxxxxxxx 2014-Pres P [address]OX Medicaid HEALTHCARE - HEALTHCARE ent [id number] MANAGED MEDICAID [place], [place] (Work) documented as of this encounter Advance Directives Type Date Recorded Patient 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
--- OUTSIDE RECORDS SUMMARY | 2019-09-04 16:06 | XMS REPORT | Summary of Care ---
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 [facility] Scot Moreira, DO [address] [place], [place] [address] Gout, unspecified [facility] cause, unspecified LAB chronicity, Primary Care unspecified site [facility] [address] , Entr A; [address] [place] [address] Allergies Active Allergy Reactions Severity Noted Date [...] 04/16/2014 Gout 07/09/2009 Overview: ICD10 Diagnosis 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 Utility Foot joint pain 06/27/2009 Other abnormal [...] Team Description 02/05/2020 Office Visit Rheumatology Scot Moreira DO [address] [place] [address] [phone] Health Maintenance Due Date Last Done Comments [...] Gout, unspecified cause, unspecified chronicity, unspecified site documented in this encounter Insurance Payer Benefit Plan / Subscriber ID Effective Phone Address Type Group Dates CIGNA CIGNA II [id number] 2017-Pres HMO/PPO/POS ent RAINEY RAINEY xxxxxxxxx 2014-Pres P O BOX Medicaid HEALTHCARE - HEALTHCARE ent [id number] MANAGED MEDICAID [place], [place] (Work) documented as of this encounter Advance Directives Type Date Recorded Patient Director Of Respiratory Therapy Explanation Advance Directives and Living Will Advance Directives and Living Will Power of Dogger
--- OUTSIDE RECORDS SUMMARY | 2019-09-04 16:06 | XMS REPORT | Summary of Care ---
:1985 Author Organization [facility] Address [address] [place] [address] Care Team Providers Name Role Phone Stanley Venegas Primary Care Provider Reason for Visit Reason Comments LAB WORK Auth/Cert Status Reason Specialty Diagnoses / Procedures Referred By Contact Referred To Contact Phlebotomy Diagnoses Gout, unspecified cause, unspecified chronicity, unspecified site Adc Pob Lab Draw Procedures CREATINE KINASE Professional Office Building [address] [place] [address] , [address] [place] [address] Encounter Details Date Type Department Care Team Description 08/23/2019 Manager Nursing Home Visit [facility] Scot Moreira, DO [address] [place] [address] [phone] Gout, unspecified cause, unspecified chronicity, unspecified site; Professional Office Pob, Adc Lab Main Therapeutic drug monitoring Building Phlebotomy Lab Professional Office Building [address] [place] [address] , [address] [place] [address] Allergies Active Allergy Reactions Severity Noted Date [...] 04/16/2014 Gout 07/09/2009 Overview: ICD10 Diagnosis 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 Foot joint pain 06/27/2009 Other abnormal [...] 02/05/2020 Office Visit Rheumatology Scot Moreira, DO [facility] [place] [address] [phone] Name Type Priority Associated Diagnoses Date/Time CREATINE KINASE LAB Routine Gout, unspecified cause, 08/23/2019 8:53 AM WINDOW DRESSER unspecified chronicity, unspecified site Therapeutic drug monitoring ALANINE AMINO LAB Add-on Gout, unspecified cause, 08/23/2019 8:53 AM WINDOW DRESSER TRANSFERASE(SGPT unspecified chronicity, unspecified site Therapeutic drug monitoring SGOT (ASPARTATE AMINO LAB Add-on Gout, unspecified cause, 08/23/2019 8:53 AM WINDOW DRESSER TRANSFER) unspecified chronicity, unspecified site Therapeutic drug monitoring Name Type Priority Associated Diagnoses Order Schedule ALANINE AMINO LAB Add-on Gout, unspecified cause, Expected: 08/23/2019, TRANSFERASE(SGPT unspecified chronicity, Expires: 08/23/2020 unspecified site Therapeutic drug monitoring SGOT (ASPARTATE AMINO LAB Add-on Gout, unspecified cause, Expected: 2019, TRANSFER) unspecified chronicity, Expires: 08/23/2020 unspecified site Therapeutic drug monitoring Health Maintenance Due Date Last Done Comments VARICELLA VACCINES ( of - 1986 2-dose childhood series) DTaP,Tdap,and Td Vaccines (1 - 1996 Tdap) INFLUENZA VACCINE (#1) 2019 05/25/2016 PNEUMOCOCCAL 0-64 YEARS COMBINED Aged Out No longer eligible based on SERIES patient's age to complete this topic documented as of this encounter Results Not on filedocumented in this encounter Visit Diagnoses Diagnosis Gout, unspecified cause, unspecified chronicity, unspecified site Therapeutic drug monitoring Encounter for therapeutic drug monitoring documented in this encounter Insurance Payer Benefit Plan / Subscriber ID Effective Phone Address Type Group Dates CIGNA CIGNA II [id number] 2017-Pres HMO/PPO/POS ent BRIGID RAINEY xxxxxxxxx 2014-Pres P O BOX Medicaid HEALTHCARE - HEALTHCARE [place] [id number] MANAGED MEDICAID [place] (Work) documented as of this encounter Advance Directives Type Date Recorded 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
--- OUTSIDE RECORDS SUMMARY | 2019-09-04 16:06 | XMS REPORT | Summary of Care ---
:1985 Author Organization [facility] Address [address] [place] [address] Care Team Providers Name Role Phone Stanley Venegas Primary Care Provider Reason for Visit Reason Comments Talk To Nurse Labs Encounter Details Date Type Department Care Team Description 08/23/2019 Telephone [facility] Internal Scot Moreira, Talk To Nurse (Labs ) Medicine DO Rheumat[address] Primary Care [address] , [place], [place] [id number] [place] [address] [phone] [phone] Allergies Active Allergy Reactions Severity Noted Date Comments Sulfa (Sulfonamide Antibiotics) Hives 06/27/2009 documented as of this encounter (statuses as of 08/24/2019) Medications Medication Sig Dispensed Refills Start Date [...] as of this encounter (statuses as of 08/24/2019) Active Problems Problem Noted Date Hereditary hyperuricemia 05/28/2014 Abnormal LFTs 04/16/2014 Gout 07/09/2009 Overview: ICD10 Diagnosis 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 Foot joint pain 06/27/2009 Other abnormal blood chemistry 06/27/2009 documented as of this encounter (statuses as of 08/24/2019) Immunizations Name Administration Dates Next Due Influenza [...] 02/05/2020 Office Visit Rheumatology Scot Moreira, DO [address] [place] [address] [phone] Health Maintenance Due Date Last Done Comments [...] Address Type Group Dates CIGNA CIGNA II [id number] 2017-Pres HMO/PPO/POS ent BRIGID RAINEY xxxxxxxxx 2014-Pres P O BOX Medicaid HEALTHCARE - HEALTHCARE [place] [id number] MANAGED MEDICAID [place] documented as of this encounter Advance Directives Type Date Recorded Patient Permanent Waver Explanation Advance Directives and Living Will Advance Directives and Living Will Power of Clinical Secretary
--- OUTSIDE RECORDS SUMMARY | 2019-09-04 16:06 | XMS REPORT | Summary of Care ---
:[address] [facility] Address [address] [place] [address] Care Team Providers Name Role Phone Stanley Venegas Primary Care Provider Reason for Visit Reason Comments Rx Concern/Question Encounter Details Date Type Department Care Team Description 08/24/2019 Telephone [facility] Internal Scot Moreira, Rx Concern/ Question Medicine DO Rheumat[address] Primary Care [address] , [place], [place] [address] [address] [place] [phone] Allergies Active Allergy Reactions Severity Noted Date [...] 04/16/2014 Gout 07/09/2009 Overview: ICD10 Diagnosis 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 Utility Foot joint pain 06/27/2009 Other abnormal [...] 02/05/2020 Office Visit Rheumatology Scot Moreira, DO [address] [place] [address] [phone] Health Maintenance Due Date Last Done Comments [...] Address Type Group Dates CIGNA CIGNA II [id number] 2017-Pres HMO/PPO/POS ent BRIGID RAINEY xxxxxxxxx 2014-Pres P O BOX Medicaid HEALTHCARE - HEALTHCARE [place] [id number] MANAGED MEDICAID [place] documented as of this encounter Advance Directives Type Date Recorded 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
--- OUTSIDE RECORDS SUMMARY | 2019-09-04 16:07 | XMS REPORT | Summary of Care ---
:1985 Author Organization [facility] Address [address] [place] [address] Care Team Providers Name Role Phone Stanley Venegas Primary Care Provider Reason for Referral (Routine) Status Reason Specialty Diagnoses / Referred By Referred To Procedures Contact Contact New Request Gastroenterology Diagnoses Elevated LFTs Scot Moreira Procedures CONSULT/REFERRAL HEPATOLOGY Libertad DO [address] [place] [address] Reason for Visit Reason Comments Rx Concern/Question Encounter Details Date Type Department Care Team Description 08/24/2019 Telephone [facility] Internal Scot Moreira Rx Concern/ Question Medicine DO Rheumat[address] Primary Care [address] , [place], [place] [address] [address] [place] [address] Allergies Active Allergy Reactions Severity Noted Date [...] 04/16/2014 Gout 07/09/2009 Overview: ICD10 Diagnosis 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 Utility Foot joint pain 06/27/2009 Other abnormal [...] 02/05/2020 Office Visit Rheumatology Scot Moreira, DO [address] [place] [address] [phone] Health Maintenance Due Date Last Done Comments VARICELLA VACCINES (1 of 2 - 1986 2-dose childhood series) DTaP,Tdap,and Td Vaccines (1 - 1996 Tdap) INFLUENZA VACCINE (#1) 2019 05/25/2016 PNEUMOCOCCAL 0-64 YEARS COMBINED Aged Out No longer eligible based on SERIES patient's age to complete this topic documented as of this encounter Results Not on filedocumented in this encounter Visit Diagnoses Diagnosis Elevated LFTs - Primary Other abnormal blood chemistry documented in this encounter Insurance Payer Benefit Plan / Subscriber ID Effective Phone Address Type Group Dates YAHAIRA SYED II [id number] 2017-Pres HMO/PPO/POS ent BRIGID RAINEY xxxxxxxxx 2014-Pres P O BOX Medicaid HEALTHCARE - [place]ALTHCARE [place] [id number] MANAGED MEDICAID [place] documented as of this encounter Advance Directives Type Date Recorded 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
--- NOTE | 2019-09-04 17:43 | ER ---
Nurse's Notes [facility] Name: Denny Arreola Age: 33 yrs Sex: Male : 1985 Arrival Date: 09/04/2019 Time: 16:04 Bed 23 Private MD: Benja Ocasio W Diagnosis: Acute upper respiratory infection, unspecified Presentation: 09/04 16:14 Presenting complaint: Mother states: Throat pain since today. Cough since last night. ca1 Denies fever. Transition of care: patient was not received from another setting of care. Onset of symptoms was September 04, 2019. Risk Assessment: Do you want to hurt yourself or someone else? Patient reports no desire to harm self or others. Initial Sepsis Screen: Does the patient meet any 2 criteria? No. Patient's initial sepsis screen is negative. Does the patient have a suspected source of infection? No. Patient's initial sepsis screen is negative. Care prior to arrival: None. 16:14 Method Of Arrival: Ambulatory ca1 16:14 Acuity: ASPEN 4 ca1 Triage Assessment: 16:30 General: Appears in no apparent distress. Behavior is calm, cooperative, appropriate vc for age. Historical: - Allergies: 16:17 Bactrim; ca1 16:17 Sulfa (Sulfonamide Antibiotics); ca1 - PMHx: 16:17 GERD; Gout; Hyperlipidemia; sinus headache; Estes Hirshhorn Syndrome; ca1 - PSHx: 16:17 Ear Tubes; lipomas removed; ca1 - Immunization history:: Adult Immunizations up to date, Flu vaccine is up to date. - Coronavirus screen:: The patient has NOT traveled to [place] in the past 14 days. The patient has NOT had contact with known/suspected case of Coronavirus?. - Social history:: Smoking status: Patient denies any tobacco usage or history of. - Ebola Screening: : Patient negative for fever greater than or equal to 101.5 degrees Fahrenheit, and additional compatible Ebola Virus Disease symptoms Patient denies exposure to infectious person Patient denies travel to an Ebola-affected area in the 21 days before illness onset No symptoms or risks identified at this time. Screenin:15 Abuse screen: Denies threats or abuse. Nutritional screening: No deficits noted. vc Tuberculosis screening: No symptoms or risk factors identified. Fall Risk None identified. Assessment: 16:30 General: Appears in no apparent distress. ill, Behavior is calm, cooperative, vc appropriate for age. Pain: Complains of pain in throat. Neuro: Level of Consciousness is awake, alert, obeys commands, Oriented to person, place, time. Cardiovascular: Patient's skin is warm and dry. Respiratory: Airway is patent Respiratory effort is even, unlabored, Breath sounds are clear. EENT: Throat is reddened. Derm: Skin temperature is warm. Musculoskeletal: Circulation, motion, and sensation intact. Range of motion: intact in all extremities. 17:30 Reassessment: Patient and/or family updated on plan of care and expected duration. Pain vc level reassessed. Patient is alert, oriented x 3, equal unlabored respirations, skin warm/dry/pink. 18:00 Reassessment: Patient and/or family updated on plan of care and expected duration. Pain vc level reassessed. Patient is alert, oriented x 3, equal unlabored respirations, skin warm/dry/pink. Neuro: Level of Consciousness is awake, alert, obeys commands. Respiratory: Respiratory effort is even, unlabored, Respiratory pattern is regular, symmetrical. Vital Signs: 16:17 BP 129 / 94; Pulse 94; Resp 18 S; Temp 97.7(A); Pulse Ox 99% on R/A; Weight 55.34 kg; ca1 Height 4 ft. 10 in. (147.32 cm) (R); 17:00 BP 119 / 103; Pulse 109; Resp 16; Pulse Ox 99% on R/A; vc 17:45 BP 103 / 72; Pulse 107; Resp 18; Pulse Ox 96% on R/A; vc 16:17 Body Mass Index 25.50 (55.34 kg, 147.32 cm) ca1 ED Course: 16:04 Patient arrived in ED. rg4 16:04 Benja Ocasio MD is Private Physician. rg4 16:04 Donya Mares FNP-C is [facility]. snw 16:04 Berry Gonzalez MD is Attending Physician. snw 16:16 Triage completed. ca1 16:18 Arm band placed on right wrist. ca1 16:29 Flu and/or RSV swab sent to lab. Strep swab sent to lab. tm3 16:30 Patient has correct armband on for positive identification. Bed in low position. Call vc light in reach. Side rails up X 1. 16:50 Melody Eddy, RN is Primary Nurse. vc 18:15 No provider procedures requiring assistance completed. Patient did not have IV access vc during this emergency room visit. Administered Medications: No medications were administered Outcome: 17:37 Discharge ordered by . snw 18:15 Discharged to home ambulatory, with family. vc 18:15 Condition: good 18:15 Discharge instructions given to patient, family, Instructed on discharge instructions, follow up and referral plans. medication usage, Demonstrated understanding of instructions, Prescriptions given X 1. 18:19 Patient left the ED. vc Signatures: Cholo Peña tm3 Donya Mares, WELL SERVICES OPERATOR-C WELL SERVICES OPERATOR-Csnw Ariana Hayes rg4 Alix Ulloa RN RN ca1 Melody Eddy, JULIA RN vc
--- NOTE | 2019-09-04 17:43 | EDPHYS ---
Physician Documentation [facility] Name: Denny Arreola Age: 33 yrs Sex: Male : 1985 Arrival Date: 09/04/2019 Time: 16:04 Bed 23 Private MD: Benja Ocasio W ED Physician Berry Gonzalez HPI: 09/04 16:31 This 33 yrs old Male presents to ER via Ambulatory with complaints of Sore snw Throat. 16:31 The patient presents with sore throat. The patient describes throat pain as raw, snw scratchy. Onset: The symptoms/episode began/occurred suddenly, last night. Severity of symptoms: At their worst the symptoms were mild. Modifying factors: the symptoms are aggravated by swallowing, cough. Associated signs and symptoms: Pertinent positives: cough. The patient has not experienced similar symptoms in the past. It is unknown whether or not the patient has recently seen a physician. Historical: - Allergies: 16:17 Bactrim; ca1 16:17 Sulfa (Sulfonamide Antibiotics); ca1 - PMHx: 16:17 GERD; Gout; Hyperlipidemia; sinus headache; Estes Hirshhorn Syndrome; ca1 - PSHx: 16:17 Ear Tubes; lipomas removed; ca1 - Immunization history:: Adult Immunizations up to date, Flu vaccine is up to date. - Coronavirus screen:: The patient has NOT traveled to [place] in the past 14 days. The patient has NOT had contact with known/suspected case of Coronavirus?. - Social history:: Smoking status: Patient denies any tobacco usage or history of. - Ebola Screening: : Patient negative for fever greater than or equal to 101.5 degrees Fahrenheit, and additional compatible Ebola Virus Disease symptoms Patient denies exposure to infectious person Patient denies travel to an Ebola-affected area in the 21 days before illness onset No symptoms or risks identified at this time. ROS: 16:30 Constitutional: Negative for fever, chills, and weight loss, Eyes: Negative for injury, snw pain, redness, and discharge, Neck: Negative for injury, pain, and swelling, Cardiovascular: Negative for chest pain, palpitations, and edema, Respiratory: Negative for shortness of breath, wheezing, and pleuritic chest pain, + cough Abdomen/GI: Negative for abdominal pain, nausea, vomiting, diarrhea, and constipation, Back: Negative for injury and pain, : Negative for injury, bleeding, discharge, and swelling, MS/Extremity: Negative for injury and deformity, Skin: Negative for injury, rash, and discoloration, Neuro: Negative for headache, weakness, numbness, tingling, and seizure, Psych: Negative for depression, anxiety, suicide ideation, homicidal ideation, and hallucinations. 16:30 ENT: Positive for sore throat. Exam: 16:25 Constitutional: This is a well developed, well nourished patient who is awake, alert, snw and in no acute distress. Head/Face: Normocephalic, atraumatic. Eyes: Pupils equal round and reactive to light, extra-ocular motions intact. Lids and lashes normal. Conjunctiva and sclera are non-icteric and not injected. Cornea within normal limits. Periorbital areas with no swelling, redness, or edema. Neck: Trachea midline, no thyromegaly or masses palpated, and no cervical lymphadenopathy. Supple, full range of motion without nuchal rigidity, or vertebral point tenderness. No Meningismus. Chest/axilla: Normal chest wall appearance and motion. Nontender with no deformity. No lesions are appreciated. Cardiovascular: Regular rate and rhythm with a normal S1 and S2. No gallops, murmurs, or rubs. Normal PMI, no JVD. No pulse deficits. Respiratory: Lungs have equal breath sounds bilaterally, clear to auscultation and percussion. No rales, rhonchi or wheezes noted. No increased work of breathing, no retractions or nasal flaring. Abdomen/GI: Soft, non-tender, with normal bowel sounds. No distension or tympany. No guarding or rebound. No evidence of tenderness throughout. Back: No spinal tenderness. No costovertebral tenderness. Full range of motion. Skin: Warm, dry with normal turgor. Normal color with no rashes, no lesions, and no evidence of cellulitis. MS/ Extremity: Pulses equal, no cyanosis. Neurovascular intact. Full, normal range of motion. Neuro: Awake and alert, GCS 15, oriented to person, place, time, and situation. Cranial nerves II-XII grossly intact. Motor strength 5/5 in all extremities. Sensory grossly intact. Cerebellar exam normal. Normal gait. Psych: Awake, alert, with orientation to person, place and time. Behavior, mood, and affect are within normal limits. 16:25 ENT: External ear(s): are unremarkable, TM's: scarring. 16:25 ENT: Nose: is normal, Mouth: is normal, Posterior pharynx: erythema, that is moderate, Voice: is normal. Vital Signs: 16:17 BP 129 / 94; Pulse 94; Resp 18 S; Temp 97.7(A); Pulse Ox 99% on R/A; Weight 55.34 kg; ca1 Height 4 ft. 10 in. (147.32 cm) (R); 17:00 BP 119 / 103; Pulse 109; Resp 16; Pulse Ox 99% on R/A; vc 17:45 BP 103 / 72; Pulse 107; Resp 18; Pulse Ox 96% on R/A; vc 16:17 Body Mass Index 25.50 (55.34 kg, 147.32 cm) ca1 MDM: 16:32 Patient medically screened. snw 17:35 Data reviewed: vital signs, nurses notes. Data interpreted: Pulse oximetry: on room air snw is 99 %. Interpretation: normal. Counseling: I had a detailed discussion with the patient and/or guardian regarding: the historical points, exam findings, and any diagnostic results supporting the discharge/admit diagnosis, the presence of at least one elevated blood pressure reading (>120/80) during this emergency department visit, lab results, the need for outpatient follow up, to return to the emergency department if symptoms worsen or persist or if there are any questions or concerns that arise at home. 09/04 16:19 Order name: Strep; Complete Time: 17:37 snw 09/04 16:19 Order name: Flu; Complete Time: 17:37 snw Administered Medications: No medications were administered Disposition: 18:29 Co-signature as Attending Physician, Berry Gonzalez MD. rn Disposition: 09/04/19 17:37 Discharged to Home. Impression: Acute upper respiratory infection, unspecified. - Condition is Stable. - Discharge Instructions: Upper Respiratory Infection, Adult, Rehydration, Adult. - Prescriptions for Tessalon Perles 100 mg Oral Capsule - take 1 capsule by ORAL route every 8 hours As needed; 15 capsule. - Medication Reconciliation Form, Thank You Letter, Antibiotic Education, Prescription Opioid Use form. - Follow up: Emergency Department; When: As needed; Reason: Worsening of condition. Follow up: Private Physician; When: 1 week; Reason: Recheck today's complaints, Continuance of care. Signatures: Dispatcher [employer] EDDonya Medrano, [place] [employer]QUIPMENT MECHANIC-Berry Alejo MD MD rn Acob, Alix RN RN ca1 Melody Eddy RN RN vc Corrections: (The following items were deleted from the chart) 18:19 17:37 09/04/2019 17:37 Discharged to Home. Impression: Acute upper respiratory vc infection, unspecified. Condition is Stable. Forms are Medication Reconciliation Form, Thank You Letter, Antibiotic Education, Prescription Opioid Use. Follow up: Emergency Department; When: As needed; Reason: Worsening of condition. Follow up: Private Physician; When: 1 week; Reason: Recheck today's complaints, Continuance of care. snw
[2019-09-04 18:53] VITALS: BP 129/94; TEMP 97.7; O2SAT 99
== END 2019-09-04 18:19 | disposition home or self-care (01) ==
LOC: ER 16:02
DX: J06.9 Acute upper respiratory infection, unspecified (principal); Z88.1 Allergy status to other antibiotic agents; Z88.2 Allergy status to sulfonamides
CPT/HCPCS: 87070; 87081; 87804; 99283

== ENCOUNTER 2020-10-24 07:56 | Day surgery (SDC) | payer OTHER, MEDICAID ==
[2020-10-24] MEDS ORDERED: Ringers Lactate 1,000 ML IV ONE (08:30)
[2020-10-24] MEDS ORDERED: CEFAZOLIN/SWI 1gm 1 GM/10 ML SYR ONE (08:31)
[2020-10-24] MEDS ORDERED: propofoL 200 MG/20 ML VIAL IV ONE (09:39)
[2020-10-24] MEDS ORDERED: ROCURONIUM 50 MG/5 ML VIAL IV ONE (09:39)
[2020-10-24] MEDS ORDERED: FENTANYL CITR 100 MCG/2 ML ONE ×2 (09:39→10:52)
[2020-10-24] MEDS ORDERED: LIDOCAINE 1% MPF 5 ML VIAL ONE (09:39)
[2020-10-24] MEDS ORDERED: MIDAZOLAM HCL 2 MG/2 ML INJ ONE (09:39)
[2020-10-24] MEDS ORDERED: ONDANSETRON 4 MG/2 ML VIAL ONE ×2 (09:39→11:37)
[2020-10-24] MEDS ORDERED: BUPIVACAINE 0.25% PF 30 ML VIAL ONE (09:50)
[2020-10-24] MEDS ORDERED: NEOSTIGMINE 1 MG/ML -5 ML ONE (11:16)
[2020-10-24] MEDS ORDERED: GLYCOPYRROLATE 0.2 MG/ML SYR ONE (11:16)
[2020-10-24 12:02] VITALS: O2SAT 100
[2020-10-24] MEDS ORDERED: ACETAMINOPHEN 500 MG TAB ONE (12:53)
[2020-10-24 13:04] VITALS: BP 118/67; TEMP 97
--- NOTE | 2020-10-24 13:20 | OP ---
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 Postoperative Diagnosis: Right preauricular cyst with preauricular sinus and recurrent and chronic i nfection and inflammation. Procedure Performed: Excision of benign skin lesion with complex closure. Indication For Procedure: Denny is a 35-year-old with a right preauricular pit since . He did w ell for many years, but over the last several months began having recurrent episodes of infection wit h redness, pain and drainage with formation of a 1 cm raised cystic lesion, about 2 cm anterior and s lightly inferior to the preauricular pit. Due to the recurrence of the infections, excision was dheeraj mmended. The patient and his mother, who has medical power of attorney at law agreed. Description Of Procedure: The patient was brought to the operating room. He was placed under genera l anesthesia via oral endotracheal tube. The head of bed was turned about 45 degrees to the right fo r better exposure of the right ear. Photodocumentation of the surgical site was obtained. The area was then cleaned with alcohol and injected with 0.5% Marcaine. The area was then prepped and draped in the standard sterile fashion. A lacrimal probe was placed within the preauricular sinus and caref ully advanced through the sinus tract until it reached the cyst cavity. A needlepoint Bovie electroc autery was then used to design a 4 cm fusiform skin ellipse over the cyst and sinus tract. The subcu taneous tissues were divided around the sinus tract and around the cyst cavity which was noted to con tain mild purulent and squamous debris with significant areas of granulation tissue. The lesion was completely excised and small vessels were ligated with silk suture. The defect measured 4 x 2 cm and included the full-thickness skin as well as some deeper tissues and a superficial lymph node defect. The Bovie electrocautery was used to widely undermine the surrounding tissues in order to reduce te nsion and allow for adequate closure. The area of undermining was approximately 2 cm superior and in ferior to the surgical site, 1 cm anteriorly and approximately a half centimeter cm as it abutted and included the skin overlying the root of the helix. A layered closure was then performed using 4-0 V icryl deep sutures and 5-0 fast-absorbing gut running sutures. Direct pressure was applied following closure to ensure hemostasis at the skin site. The surrounding skin was cleaned and dried. Triple antibiotic ointment was applied to the incision and a gauze dressing was secured with surgical tape. The procedure was concluded. All counts were reported as correct and the patient was returned to mt re of Anesthesia for awakening and extubation in the operating room, which proceeded without difficul ty. Complications: None. Specimen: Right preauricular cyst and sinus. Disposition: The patient will be discharged home later today in the care of his mother with routine wound care and follow up with Dr. Cobb in about 2 weeks to evaluate for healing. The patient is c urrently on doxycycline for mild inflammation noted at his preop visit and should complete those exis ting medications. SUSHIL/EDUARDO Voice ID: [id number] Report ID: [id number]
--- NOTE | 2020-10-24 14:15 | P.BOP ---
Preoperative diagnosis: right preauricular sinus and cyst with chronic infection Postoperative diagnosis: same Primary procedure: excision benign skin lesion with complex closure, 4 cm Lock Expert: NONE,NONE Estimated blood loss: <10ml Specimen: right preauricular cyst/sinus tract Anesthesia: General Complications: None Implants: none Fluids & blood products: see anest. records Transferred to: Recovery Room Condition: Good
== END 2020-10-24 13:00 | disposition home or self-care (01) ==
LOC: OR 07:56
PROVIDERS: ATTEND Otolaryngology
PROC: 09B0XZZ Excision of Right External Ear, External Approach (ICD-10-PCS; principal; 2020-10-24 08:45)
DX: Q18.1 Preauricular sinus and cyst (principal); Q93.3 Deletion of short arm of chromosome 4; E66.3 Overweight; R03.0 Elevated blood-pressure reading, without diagnosis of hypertension; Z20.822 Contact with and (suspected) exposure to COVID-19
CPT/HCPCS: 88304; 11446; U0002; J2704; J2250; J3010 ×2; J2710; J0690; J7120; J2405 ×2; 88305

== ENCOUNTER 2024-07-25 18:28 | Emergency (ER) | payer OTHER ==
--- NOTE | 2024-07-25 19:17 | EDPHYS ---
Physician Documentation [facility] Name: Denny Arreola Age: 38 yrs Sex: Male : 1985 Arrival Date: 07/25/2024 Time: 18:28 Bed DX3 Private MD: ED Physician Hugh Solares HPI: 07/25 19:16 This 38 yrs old Male presents to ER via Unassigned with complaints of Mouth kb Problem, Eye Swelling. 22:12 Patient is a 38-year-old male who presents with pain to right cheek that started kb yesterday. Mother states that patient had a teeth cleaning on Tuesday. States he started complaining of pain to inner right cheek yesterday and today has developed redness and slight swelling to the outside of his cheek. Denies fever.. Historical: - Allergies: 19:25 Bactrim; tm6 19:25 Sulfa (Sulfonamide Antibiotics); tm6 - PMHx: 19:25 GERD; Gout; Hyperlipidemia; sinus headache; Estes Hirshhorn Syndrome; tm6 - Immunization history:: Flu vaccine status is unknown. - Infectious Disease History:: Denies. - Social history:: Smoking status: Patient denies any tobacco usage or history of. ROS: 22:10 Constitutional: As per HPI kb Exam: 22:10 Constitutional: This is a well developed, well nourished patient who is awake, alert, kb and in no acute distress. Head/Face: Normocephalic, atraumatic. ENT: Moist Mucous membranes Cardiovascular: Regular rate Respiratory: Respirations even and unlabored. No increased work of breathing. Talking in full sentences Skin: Warm, dry with normal turgor. Normal color. MS/ Extremity: Pulses equal, no cyanosis. Neurovascular intact. Full, normal range of motion. Neuro: Awake and alert, GCS 15, oriented to person, place, time, and situation. 22:10 ENT: Erythema to inner right cheek with mild cellulitis to external right cheek. Vital Signs: 19:22 BP 120 / 92; Pulse 99; Resp 18; Temp 97(TE); Pulse Ox 99% on R/A; MAP 102 mmHg; Weight tm6 57.15 kg; Pain 10/10; 19:22 Pain Scale: Adult tm6 MDM: 18:43 Medical Screening Exam initiated kb 19:16 Data reviewed: vital signs, nurses notes. Historians other than the Patient: Parent: baljinder mother. 22:12 Differential diagnosis: dental caries, dental abscess, Cellulitis, abscess. Test kb considered but Not performed: CT: CT considered but no abscess appreciated, afebrile. Counseling: I had a detailed discussion with the patient and/or guardian regarding the historical points, exam findings, and any diagnostic results supporting the discharge/admit diagnosis, the need for outpatient follow up, a dentist, a family practitioner, to return to the emergency department if symptoms worsen or persist or if there are any questions or concerns that arise at home. Administered Medications: 19:45 Drug: Clindamycin PO 300 mg PO once Route: PO; tm6 19:45 Follow up: Response: Medication administered at discharge. tm6 19:45 Drug: HYDROcodone-acetaminophen PO 5 mg-325 mg 1 tabs PO once Route: PO; tm6 19:45 Follow up: Response: Medication administered at discharge. tm6 Disposition Summary: 07/25/24 19:16 Discharge Ordered Notes: Location: Home kb Condition: Stable kb Diagnosis - Cellulitis of face kb Followup: kb - With: Emergency Department - When: As needed - Reason: Worsening of condition Followup: kb - With: Private Physician - When: 2 - 3 days - Reason: Recheck today's complaints, Continuance of care, Re-evaluation by your physician Discharge Instructions: - Discharge Summary Sheet kb - Cellulitis, Adult, Pmis-by-Imrp kb Forms: - Medication Reconciliation Form kb - Antibiotic Education kb - Prescription Opioid Use kb - Patient Portal Instructions kb - Leadership Thank You Letter kb Prescriptions: - Clindamycin HCl 300 mg Oral Capsule - take 1 capsule ORAL route every 6 hours for 10 days; 40 capsule; Refills: 0, kb Product Selection Permitted Signatures: Hermelinda Joseph, Xin Suero RN RN tm6
[2024-07-25] MEDS ORDERED: HYDROCODONE/APAP 5/325 MG TAB ONE (19:40)
--- NOTE | 2024-07-25 19:47 | ER ---
Nurse's Notes [facility] Name: Denny Arreola Age: 38 yrs Sex: Male : 1985 Arrival Date: 07/25/2024 Time: 18:28 Bed DX3 Private MD: Diagnosis: Cellulitis of face Presentation: 07/25 19:23 Chief complaint: Parent and/or Guardian states: had a dentist appointment on Tuesday, tm6 did a cleaning. But his cheek on the right side, started to complain of pain yesterday. Put oragel on it, this morning it was swollen and still painful. Right eye also started to swell this morning and has gotten worse throughout the day. Coronavirus screen: Client denies travel out of the [place] in the last 14 days. Ebola Screen: Patient negative for fever greater than or equal to 101.5 degrees Fahrenheit, and additional compatible Ebola Virus Disease symptoms Patient denies exposure to infectious person. Patient denies travel to an Ebola-affected area in the 21 days before illness onset. No symptoms or risks identified at this time. Initial Sepsis Screen: Does the patient meet any 2 criteria? No. Patient's initial sepsis screen is negative. Does the patient have a suspected source of infection? No. Patient's initial sepsis screen is negative. Risk Assessment: Do you want to hurt yourself or someone else? Patient reports no desire to harm self or others. Onset of symptoms was July 24, 2024. 19:23 Method Of Arrival: Ambulatory tm6 19:23 Acuity: ASPEN 4 tm6 Triage Assessment: 19:25 General: Appears in no apparent distress. Behavior is calm, cooperative. Pain: tm6 Complains of pain in right cheek Pain currently is 10 out of 10 on a pain scale. EENT: Eyes right eye swollen. Reports pain in right cheek. Neuro: Level of Consciousness is awake, alert, obeys commands, Oriented to person, place, time, situation. Cardiovascular: Patient's skin is warm and dry. Respiratory: Airway is patent Respiratory effort is even, unlabored, Respiratory pattern is regular, symmetrical. GI: No signs and/or symptoms were reported involving the gastrointestinal system. Abdomen is flat, non-distended. : No signs and/or symptoms were reported regarding the genitourinary system. Derm: No signs and/or symptoms reported regarding the dermatologic system. Musculoskeletal: No signs and/or symptoms reported regarding the musculoskeletal system. Historical: - Allergies: 19:25 Bactrim; tm6 19:25 Sulfa (Sulfonamide Antibiotics); tm6 - PMHx: 19:25 GERD; Gout; Hyperlipidemia; sinus headache; Estes Hirshhorn Syndrome; tm6 - Immunization history:: Flu vaccine status is unknown. - Infectious Disease History:: Denies. - Social history:: Smoking status: Patient denies any tobacco usage or history of. Screenin:45 [facility] ED Fall Risk Assessment (Adult) History of falling in the last 3 months, tm6 including since admission No falls in past 3 months (0 pts) Confusion or Disorientation No (0 pts) Intoxicated or Sedated No (0 pts) Impaired Gait No (0 pts) Mobility Assist Device Used No (0 pt) Altered Elimination No (0 pt) Score/Fall Risk Level 0 - 2 = Low Risk Oriented to surroundings, Maintained a safe environment, Educated pt \T\ family on fall prevention, incl call for assistance when getting out of bed. Abuse screen: Denies threats or abuse. Denies injuries from another. Nutritional screening: No deficits noted. Tuberculosis screening: No symptoms or risk factors identified. Assessment: 19:45 Reassessment: see triage assessment. tm6 Vital Signs: 19:22 BP 120 / 92; Pulse 99; Resp 18; Temp 97(TE); Pulse Ox 99% on R/A; MAP 102 mmHg; Weight tm6 57.15 kg; Pain 10/10; 19:22 Pain Scale: Adult tm6 ED Course: 18:31 Patient arrived in ED. ra3 18:42 Hermelinda Joseph FNP-C [facility]. kb 18:42 Hugh Solares MD is Attending Physician. kb 19:25 Triage completed. tm6 19:25 Arm band placed on left wrist. tm6 19:45 Patient has correct armband on for positive identification. Provided Education on: use tm6 of prescription. 19:45 No provider procedures requiring assistance completed. Patient did not have IV access tm6 during this emergency room visit. Administered Medications: 19:45 Drug: Clindamycin PO 300 mg PO once Route: PO; tm6 19:45 Follow up: Response: Medication administered at discharge. tm6 19:45 Drug: HYDROcodone-acetaminophen PO 5 mg-325 mg 1 tabs PO once Route: PO; tm6 19:45 Follow up: Response: Medication administered at discharge. tm6 Medication: 19:45 VIS not applicable for this client. tm6 Outcome: 19:16 Discharge ordered by . kb 19:45 Discharged to home ambulatory, with family, tm6 19:45 Condition: stable 19:45 Discharge instructions given to patient, family, Instructed on discharge instructions, follow up and referral plans. medication usage, Demonstrated understanding of instructions, follow-up care, medications, Prescriptions given X 1, 19:46 Patient left the ED. tm6 Signatures: Hermelinda Joseph, [place] NENA WORLEY-Xin Camargo RN RN tm6 Day [place] ra3
[2024-07-25 19:56] VITALS: BP 120/92; TEMP 97; O2SAT 99
== END 2024-07-25 19:46 | disposition home or self-care (01) ==
LOC: ER 18:28
DX: L03.211 Cellulitis of face (principal)
CPT/HCPCS: 99283